=== PATIENT | male | born 1960 | race Caucasian/White ===

== ENCOUNTER → 2021-04-12 16:07 | Outpatient (BNVA) | payer BC, SELFPAY | PROVIDERS: Visit Provider Internal Medicine | DX: Z01.812 Encounter for preprocedural laboratory examination (principal); Z12.11 Encounter for screening for malignant neoplasm of colon; Z20.822 Contact with and (suspected) exposure to COVID-19 | CPT/HCPCS: 87635 ==

== ENCOUNTER 2021-04-16 06:54 | Day surgery (SDC) | payer BC, SELFPAY ==
[2021-04-12 14:05] VITALS: BMI 36.9
--- NOTE | 2021-04-16 07:15 | ANES.PREANE2 ---
Pre-Anesthetic Assessment Pre-Anesthetic Assessment: Height/Weight: Height 1.75 m Weight 113.398 kg Preop Diagnosis: screening Proposed Procedure: Operation Date: 04/16/21 08:45 Proposed Procedures p Colonoscopy 41740 Z12.11(Not Applicable) - Yousif Cervantes MD Familial anesthetic complications: Sleepy afterwards Last intake: > 8 hrs Social: Social History: No alcohol and No tobacco Exam: Pre-Anes Outpt Exam: alert, oriented x 3, clear to auscultation bilaterally and regular rate & rhythm Airway: MP: 3 Dentition: Other (crowns) Additional comments: large tongue and neck Pulmonary: Pulmonary: Sleep apnea (cpap) GI: GI: GERD Metabolic: Metabolic: Morbid obesity Musc/skel: Musc/skel: Lower Back Pain Anesthetic Plan: ASA status: 2 Anesthesia: MAC Risk of > 500 ml blood loss (7ml/kg in children): No PFSH Anesthesia PFSH: Family History (Updated 04/04/21 @ 09:[address]) Other Cancer Diabetes Heart disease Social History (Updated 04/04/21 @ 09:[address]) Smoking and tobacco status: never smoked Adopted: No Marital status: Number of children: 5 service: No History of recent travel: No Data Anesthesia Cardiac Studies: No Data to Display
--- NOTE | 2021-04-16 07:35 | P.HP_ITS ---
Same Day Surgery H&P Indication for Procedure/HPI DATE OF PROCEDURE: April 16, 2021 CHIEF COMPLAINT/INDICATIONFOR SURGICAL PROCEDURE: Screening colonoscopy PREOP DIAGNOSIS: Routine screening average risk PLANNED PROCEDRUE: Operation Date: 04/16/21 08:45 Proposed Procedures p Colonoscopy 40234 Z12.11(Not Applicable) - Yousif Cervantes MD Medications/Allergies* Home Medications Medication Instructions Recorded Confirmed Type No Known Home Medications 04/12/21 04/12/21 History Allergies/Adverse Reactions Allergy/AdvReac Type Severity Reaction Status Date / Time tetanus toxoid, adsorbed Allergy Intermediate Unknown Verified 04/12/21 14:00 Pertinent History/Comorbid Conditions* Family History (Updated 04/04/21 @ 09:40 by MARCELLA Rojo) Diabetes Heart disease Cancer Social History Smoking and tobacco status: never smoked Adopted: No Marital status: Number of children: 5 service: No History of recent travel: No Pertinent Exam Findings alert, oriented x 3, clear to auscultation bilaterally, regular rate & rhythm, operative site marked and procedure specific exam findings Recommendations Surgery/Procedure today Coding Level of Care Code Acute 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
[2021-04-16 07:43] VITALS: BP 179/99; PULSE 76; RESP 18; TEMP 36.2; O2SAT 99
[2021-04-16] MEDS: sodium chloride 0.9% 1,000 ML 30 ML IV (07:53)
[2021-04-16 09:05] VITALS: BP 146/91; PULSE 69; RESP 18; TEMP 36.1; O2SAT 96
[2021-04-16 09:21] VITALS: BP 151/90; PULSE 62; RESP 18; O2SAT 95
--- NOTE | 2021-04-16 14:53 | ANE.PACU2 ---
Inpatient post-anesthesia follow up: Airway intact: Yes Vital signs: Temperature 97 F Pulse Rate 62 Respiratory Rate 18 Blood Pressure 151/90 Pulse Oximetry 95 Oxygen Delivery Me thod Room Air Oxygen Flow Rate 7 Fraction of Inspir ed Oxygen Hydration adequate: Yes Nausea and vomiting: No Pain level: 2 Mental status: Baseline
== END 2021-04-16 09:55 | disposition home or self-care (01) ==
PROVIDERS: PCP Nurse Practitioner; Visit Provider Internal Medicine
PROC: 0DJD8ZZ Inspection of Lower Intestinal Tract, Via Natural or Artificial Opening Endoscopic (ICD-10-PCS; CPT 45378; principal; 2021-04-16 08:45)
DX: Z12.11 Encounter for screening for malignant neoplasm of colon (principal)
CPT/HCPCS: 45378; 96360; 96361; J2704; J7030

== ENCOUNTER 2022-09-19 06:56 | Outpatient (CLI) | payer BC, SELFPAY ==
--- NOTE | 2022-09-19 | US_ITS ---
WS: [id number] RIGHT UPPER QUADRANT ULTRASOUND HISTORY: ELEVATED LIVER ENZYMES COMPARISON: None available. Liver: 19.0 cm in length. Moderate hepatomegaly and hepatic steatosis. No mass or bile duct dilatatio n. No mass is identified but the entire liver is not well visualized due to attenuation. Portal Vein: Normal hepatopetal flow with monophasic waveform. Gallbladder: Normally distended gallbladder. There is a focus in the nondependent gallbladder wall me asuring 4 x 5 x 4 mm. Probably representing a polyp. CBD: 0.4 cm Pancreas: Body of the pancreas is normal. The remaining pancreas is poorly visualized secondary to GI tract content. Right kidney: 13.0 cm in length. Normal size and echogenicity. No hydronephrosis or mass. Aorta and IVC: Unremarkable abdominal aorta and IVC. No ascites. US/US liver [id number] IMPRESSION: 1. Moderate hepatomegaly and hepatic steatosis. 2. Hyperplastic gallbladder polyp. 3. Partially visualized pancreas.
== END 2022-09-19 06:57 | disposition home or self-care (01) ==
LOC: RAD 07:00
PROVIDERS: PCP Nurse Practitioner; Visit Provider Nurse Practitioner
DX: R74.8 Abnormal levels of other serum enzymes (principal); R16.0 Hepatomegaly, not elsewhere classified; K82.4 Cholesterolosis of gallbladder
CPT/HCPCS: 76705

== ENCOUNTER 2023-11-17 16:00 | Outpatient (CLI) | payer OTHER, SELFPAY ==
--- NOTE | 2023-11-17 16:13 | XRR_ITS ---
PROCEDURE INFORMATION: Exam: XR Right Shoulder Exam date and time: 11/17/2023 4:17 PM Age: 63 years old Clinical indication: Pain and injury or trauma; Fall; Blunt trauma (contusions or hematomas); Right; Injury details: Fell off 4 ft bridge, landed on RT shoulder, felt a tear; Additional info: Right shoulder pain TECHNIQUE: Imaging protocol: Radiologic exam of the right shoulder. Views: 2 or more views. COMPARISON: No relevant prior studies available. FINDINGS: Bones/joints: The glenohumeral articulation is grossly intact. There appears to be limited range of motion with external rotation. The acromioclavicular articulation is grossly intact with moderate osteoarthritis. Soft tissues: No gross soft tissue abnormality. XR/XR shoulder RT min 2V* [id number] IMPRESSION: 1. No evidence of fracture or subluxation. 2. Apparent limited range of motion with external rotation. If there is concern for muscle or tendon pathology, follow-up nonemergent MRI may be helpful.
== END 2023-11-17 16:01 | disposition home or self-care (01) ==
PROVIDERS: PCP Nurse Practitioner; Visit Provider Nurse Practitioner Family
DX: M25.611 Stiffness of right shoulder, not elsewhere classified (principal); M25.511 Pain in right shoulder; M19.011 Primary osteoarthritis, right shoulder; W13.1XXA Fall from, out of or through bridge, initial encounter
CPT/HCPCS: 73030

== ENCOUNTER 2023-11-20 08:26 | Outpatient (CLI) | payer OTHER, SELFPAY ==
--- NOTE | 2023-11-20 08:30 | US_ITS ---
WS: [id number] RIGHT UPPER QUADRANT ULTRASOUND HISTORY: gallbladder polyp COMPARISON: 09/19/2022 Liver: 17.4 cm in length. Coarse echotexture throughout the liver with hepatic steatosis. The entire liver is not well visualized. No bile duct dilatation. Portal Vein: Normal hepatopetal flow with monophasic waveform. Gallbladder: Distended gallbladder. There are 2 nonshadowing soft tissue foci within the gallbladder most consistent with polyps. The largest measures 5 mm. CBD: 0.5 cm Pancreas: Obscured by body habitus. Right kidney: 12.8 cm in length. Normal size and echogenicity. No hydronephrosis or mass. Aorta and IVC: Unremarkable abdominal aorta and IVC. No ascites. US/US gall bladder [id number] IMPRESSION: 1. Gallbladder polyps x2. 2 polyps are identified today. Only a single polyp w as identified on the prior study from 09/19/2002. No cholelithiasis. 2. Hepatic steatosis. Liver is poorly visualized due to body habitus. 3. Negative RIGHT kidney.
[2023-11-20 09:22] LABS: Basophils % 0.4 %; Eosinophils # 0.1 10^3/uL (0.0-0.8); Eosinophils % 2.3 %; Lymphocytes # 1.4 10^3/uL (0.8-4.8); Lymphocytes % 27.1 %; Mean Corpuscular HGB Conc 32.6 g/dL (30-55); Mean Corpuscular Hemoglobin 27.3 pg (27-33); Mean Corpuscular Volume 83.7 fl (82-101); Mean Platelet Volume 10.3 fL (7.4-10.4); Monocytes # 0.6 10^3/uL (0.2-0.9); Monocytes % 10.8 %; Neutrophils # 3.12 10^3/uL (1.8-7.7); Nucleated Red Blood Cells % 0 %; Platelet Count 162 10^3/cmm (157-399); Red Blood Count 6.45 10^6/uL (3.85-5.65); White Blood Count 5.28 10^3/uL (3.29-11.43)
[2023-11-20 09:43] LABS: Alanine Aminotransferase 43 U/L (0-41); Albumin Level 4.1 g/dL (3.5-5.2); Alkaline Phosphatase 90 U/L (40-130); Anion Gap 11.8 (5-19); Aspartate Amino Transferase 24 U/L (0-40); Blood Urea Nitrogen 17 mg/dL (8-23); Calcium 9.1 mg/dL (8.5-10.5); Carbon Dioxide 28 mmol/L (22-29); Chloride 104 mmol/L (98-107); Chol HDL Ratio 4.16 mg/dL (1.0-5.00); Cholesterol 133 mg/dL (0-200); Globulin 2.8 g/dL (1.3-4.6); Glomerular Filtration Rate 84.7 mL/min (90-130); Glucose 113 mg/dL (65-115); HDL Cholesterol 32 mg/dL (60-100); LDL Cholesterol Calculated 82 mg/dL (50-129); LDL HDL Ratio 2.56 RATIO (0.00-3.22); Osmolality Calculated 290 mOsm/kg (285-295); Potassium 4.8 mmol/L (3.5-5.1); Sodium 139 mmol/L (136-145); Total Bilirubin 0.4 mg/dL (0.15-1.2); Total Protein 6.9 g/dL (6.6-8.7); Triglycerides 94 mg/dL (0-150)
== END 2023-11-20 08:27 | disposition home or self-care (01) ==
LOC: RAD 08:26
PROVIDERS: PCP Nurse Practitioner; Visit Provider Surgery
DX: I10 Essential (primary) hypertension (principal); K82.4 Cholesterolosis of gallbladder; E78.5 Hyperlipidemia, unspecified; K76.0 Fatty (change of) liver, not elsewhere classified
CPT/HCPCS: 76705; 80053; 80061; 85025

== ENCOUNTER 2023-12-10 12:15 | Outpatient (CLI) | payer MEDICARE, SELFPAY ==
[2023-12-10 13:08] LABS: Hematocrit 53.4 % (37-53)
[2023-12-10 15:40] LABS: Estradiol 29.9 pg/mL (7.63-42.6)
== END 2023-12-10 12:16 | disposition home or self-care (01) ==
LOC: LAB 12:21
PROVIDERS: PCP Nurse Practitioner; Visit Provider Nurse Practitioner Family
DX: E29.1 Testicular hypofunction (principal)
CPT/HCPCS: 36415; 82670; 84153; 84402; 84403; 85014

== ENCOUNTER 2023-12-11 13:55 | Outpatient (CLI) | payer MEDICARE, SELFPAY ==
--- NOTE | 2023-12-11 14:30 | MR_ITS ---
WS: [id number] MRI RIGHT SHOULDER HISTORY: S46.911A - Strain of unspecified muscle, fascia and tendon, fall off bridge. COMPARISON: Radiograph 11/17/2023 TECHNIQUE: Multiplanar sequences of the shoulder joint are submitted. Severe AC joint arthropathy. Hypertrophic bone formation with contact and deformity of the supraspina tus myotendinous portion. There is fluid in the subacromial and subdeltoid bursa. Mild subacromial im pingement. No os acromion. Biceps tendon is present in the bicipital groove but there is increased T2 signal within the tendon suggesting split tendon. There is also heterogeneous material surrounding t he tendon sheath which is probably related to contusion and hematoma. There is abnormal signal in the posterolateral humeral head consistent with edema related to the rece nt trauma and trabecular injury. Mild cortical deformity and flattening over the posterolateral humer al head. There is a nondisplaced fracture. Mild tendinopathy of the distal supraspinatus. Increased s ignal in the distal subscapularis tendon but no full-thickness tear. Infraspinatus tendon normal. The re is no muscle atrophy. Soft tissue edema and contusion extends over the humeral head greatest along the biceps tendon and the subscapularis tendon. MR/MR shoulder RT wo con* [id number] IMPRESSION: 1. There is extensive marrow edema in the posterior lateral humeral head consi stent with trabecular injury and nondisplaced fracture. 2. Extensive soft tissue injury over the posterolateral humeral head with invo lvement of the biceps tendon sheath and also the subscapularis tendon sheath. N o definite tear is identified. The humeral head fracture is closely associated with the distal insertion site of the subscapularis tendon. 3. Severe AC joint arthritis. 4. Split tear biceps tendon in the bicipital groove.
== END 2023-12-11 13:56 | disposition home or self-care (01) ==
LOC: RAD 13:55
PROVIDERS: PCP Nurse Practitioner; Visit Provider Nurse Practitioner
DX: S46.211A Strain of muscle, fascia and tendon of other parts of biceps, right arm, initial encounter (principal); M12.811 Other specific arthropathies, not elsewhere classified, right shoulder; M67.813 Other specified disorders of tendon, right shoulder; M75.41 Impingement syndrome of right shoulder; M21.821 Other specified acquired deformities of right upper arm; W13.1XXA Fall from, out of or through bridge, initial encounter
CPT/HCPCS: 73221

== ENCOUNTER → 2023-12-23 14:04 | Outpatient (BNVA) | payer MEDICARE, SELFPAY | PROVIDERS: PCP Nurse Practitioner; Referring Provider Nurse Practitioner; Visit Provider Orthopaedic Surgery | DX: S49.91XA Unspecified injury of right shoulder and upper arm, initial encounter (principal); W13.1XXA Fall from, out of or through bridge, initial encounter | CPT/HCPCS: 73030; 99203 ==

== ENCOUNTER → 2024-01-20 08:19 | Outpatient (BNVA) | payer MEDICARE, SELFPAY | PROVIDERS: PCP Nurse Practitioner; Visit Provider Orthopaedic Surgery | DX: S46.911A Strain of unspecified muscle, fascia and tendon at shoulder and upper arm level, right arm, initial encounter (principal); X58.XXXA Exposure to other specified factors, initial encounter | CPT/HCPCS: 73030; 99213 ==

== ENCOUNTER 2024-02-24 06:30 | Outpatient (RCR) | payer MEDICARE, SELFPAY | END 2024-03-25 23:59 | disposition home or self-care (01) | LOC: MPT 06:30 | PROVIDERS: Visit Provider Orthopaedic Surgery | DX: M25.511 Pain in right shoulder (principal); G89.29 Other chronic pain | CPT/HCPCS: 97110; 97140; 97162; G0283 ==

== ENCOUNTER → 2024-02-24 08:55 | Outpatient (BNVA) | payer MEDICARE, SELFPAY | PROVIDERS: PCP Nurse Practitioner; Visit Provider Orthopaedic Surgery | DX: M25.511 Pain in right shoulder (principal) | CPT/HCPCS: 73030; 99213 ==

== ENCOUNTER 2024-03-26 06:00 | Outpatient (RCR) | payer MEDICARE, SELFPAY | END 2024-04-24 23:59 | disposition home or self-care (01) | LOC: MPT 06:00 | PROVIDERS: Visit Provider Orthopaedic Surgery | DX: M25.511 Pain in right shoulder (principal); G89.29 Other chronic pain | CPT/HCPCS: 97110; 97140; G0283 ==

== ENCOUNTER 2024-03-31 11:06 | Outpatient (CLI) | payer MEDICARE, SELFPAY ==
[2024-03-31 11:50] LABS: Hematocrit 52.3 % (37-53)
[2024-03-31 12:13] LABS: Alanine Aminotransferase 60 U/L (0-41); Albumin Level 4.2 g/dL (3.5-5.2); Alkaline Phosphatase 83 U/L (40-130); Aspartate Amino Transferase 30 U/L (0-40); Globulin 2.3 g/dL (1.3-4.6); Testosterone Total 308.6 ng/dL (193-740); Total Bilirubin 0.3 mg/dL (0.15-1.2); Total Protein 6.5 g/dL (6.6-8.7)
[2024-03-31 12:44] LABS: Estradiol 15.7 pg/mL (7.63-42.6)
== END 2024-03-31 11:07 | disposition home or self-care (01) ==
PROVIDERS: Visit Provider Nurse Practitioner Family
DX: E29.1 Testicular hypofunction (principal); Z87.898 Personal history of other specified conditions
CPT/HCPCS: 36415; 80076; 82670; 84153; 84403; 85014

== ENCOUNTER 2024-04-25 06:00 | Outpatient (RCR) | payer MEDICARE, SELFPAY | END 2024-05-25 23:59 | disposition home or self-care (01) | LOC: MPT 06:00 | PROVIDERS: Visit Provider Orthopaedic Surgery | DX: M25.511 Pain in right shoulder (principal); G89.29 Other chronic pain | CPT/HCPCS: 97110; 97140; G0283 ==

== ENCOUNTER 2024-05-26 06:30 | Outpatient (RCR) | payer MEDICARE, SELFPAY | END 2024-06-25 23:59 | disposition home or self-care (01) | LOC: MPT 06:30 | PROVIDERS: Visit Provider Orthopaedic Surgery | DX: M25.519 Pain in unspecified shoulder (principal); G89.29 Other chronic pain | CPT/HCPCS: 97110; 97140; G0283 ==

== ENCOUNTER 2024-07-27 11:36 | Outpatient (CLI) | payer MEDICARE, SELFPAY ==
[2024-07-27 12:21] LABS: Hematocrit 52.2 % (37-53)
[2024-07-27 12:50] LABS: Testosterone Total 397.3 ng/dL (193-740)
[2024-07-27 12:58] LABS: Prostate Specific Antigen Scr 4.17 ng/mL (0-4)
[2024-07-27 13:19] LABS: Estradiol 20.8 pg/mL (7.63-42.6)
== END 2024-07-27 11:37 | disposition home or self-care (01) ==
PROVIDERS: PCP Nurse Practitioner; Visit Provider Nurse Practitioner Family
DX: E29.1 Testicular hypofunction (principal); Z12.5 Encounter for screening for malignant neoplasm of prostate
CPT/HCPCS: 36415; 82670; 84403; 85014; 85018; G0103

== ENCOUNTER → 2024-11-30 14:59 | Outpatient (BNVA) | payer MEDICARE, SELFPAY | PROVIDERS: PCP Nurse Practitioner; Visit Provider Nurse Practitioner | DX: M25.562 Pain in left knee (principal); M25.762 Osteophyte, left knee | CPT/HCPCS: 73562 ==

== ENCOUNTER 2024-12-10 14:34 | Outpatient (CLI) | payer MEDICARE, SELFPAY ==
[2024-12-10 15:10] LABS: Hematocrit 50.4 % (37-53)
[2024-12-10 16:07] LABS: Alanine Aminotransferase 73 U/L (0-41); Albumin Level 4.2 g/dL (3.5-5.2); Alkaline Phosphatase 90 U/L (40-130); Aspartate Amino Transferase 33 U/L (0-40); Globulin 2.4 g/dL (1.3-4.6); Prostate Specific Antigen 4.400 ng/mL (0-4); Total Protein 6.6 g/dL (6.6-8.7)
== END 2024-12-10 14:35 | disposition home or self-care (01) ==
PROVIDERS: PCP Nurse Practitioner; Visit Provider Nurse Practitioner Family
DX: E29.1 Testicular hypofunction (principal); Z87.898 Personal history of other specified conditions
CPT/HCPCS: 36415; 80076; 82670; 84153; 84403; 85014

== ENCOUNTER → 2025-01-03 14:14 | Outpatient (BNVA) | payer MEDICARE, SELFPAY | PROVIDERS: PCP Nurse Practitioner; Visit Provider Orthopaedic Surgery | DX: M25.562 Pain in left knee (principal); S83.242A Other tear of medial meniscus, current injury, left knee, initial encounter; X58.XXXA Exposure to other specified factors, initial encounter; K52.9 Noninfective gastroenteritis and colitis, unspecified | CPT/HCPCS: 87045; 87427; 87449; 87493; 99204 ==

== ENCOUNTER 2025-01-05 10:17 | Outpatient (CLI) | payer MEDICARE, SELFPAY | END 2025-01-05 10:18 | disposition home or self-care (01) | LOC: LAB 10:20 | PROVIDERS: PCP Nurse Practitioner; Visit Provider Nurse Practitioner | DX: R19.7 Diarrhea, unspecified (principal) | CPT/HCPCS: 87177; 87209; 87328; 87329 ==

== ENCOUNTER 2025-01-11 09:48 | Outpatient (CLI) | payer MEDICARE, SELFPAY | END 2025-01-11 09:49 | disposition home or self-care (01) | PROVIDERS: PCP Nurse Practitioner; Visit Provider Nurse Practitioner | DX: R19.7 Diarrhea, unspecified (principal) | CPT/HCPCS: 87045; 87427; 87449 ==

== ENCOUNTER → 2025-02-14 11:28 | Outpatient (BNVA) | payer MEDICARE, SELFPAY | PROVIDERS: PCP Nurse Practitioner; Visit Provider Orthopaedic Surgery | DX: M25.562 Pain in left knee (principal); G89.29 Other chronic pain; M24.19 Other articular cartilage disorders, other specified site | CPT/HCPCS: 99213 ==

== ENCOUNTER 2025-03-15 12:53 | Outpatient (CLI) | payer MEDICARE, SELFPAY ==
[2025-03-15 13:49] LABS: Hematocrit 51.3 % (37-53)
[2025-03-15 14:27] LABS: Alanine Aminotransferase 70 U/L (0-41); Albumin Level 4.2 g/dL (3.5-5.2); Alkaline Phosphatase 163 U/L (40-130); Aspartate Amino Transferase 29 U/L (0-40); Globulin 2.7 g/dL (1.3-4.6); Prostate Specific Antigen 5.650 ng/mL (0-4); Total Protein 6.9 g/dL (6.6-8.7)
== END 2025-03-15 12:54 | disposition home or self-care (01) ==
PROVIDERS: PCP Nurse Practitioner; Visit Provider Nurse Practitioner Family
DX: R97.20 Elevated prostate specific antigen [PSA] (principal); E29.1 Testicular hypofunction
CPT/HCPCS: 36415; 80076; 82670; 84153; 84403; 85014

== ENCOUNTER 2025-04-28 16:44 | Outpatient (CLI) | payer MEDICARE, SELFPAY ==
[2025-04-28 18:12] LABS: Blood Urea Nitrogen 13 mg/dL (8-23); Prostate Specific Antigen 5.080 ng/mL (0-4)
== END 2025-04-28 16:45 | disposition home or self-care (01) ==
LOC: LAB 16:46
PROVIDERS: PCP Nurse Practitioner; Visit Provider Nurse Practitioner Family
DX: R97.20 Elevated prostate specific antigen [PSA] (principal)
CPT/HCPCS: 36415; 82565; 84153; 84520

== ENCOUNTER → 2025-05-02 10:42 | Outpatient (BNVA) | payer MEDICARE, SELFPAY | PROVIDERS: PCP Nurse Practitioner; Visit Provider Nurse Practitioner | DX: E78.5 Hyperlipidemia, unspecified (principal) | CPT/HCPCS: 80061 ==